=== PATIENT | male | born 1940 | race Caucasian/White ===

== ENCOUNTER 2016-10-11 07:02 | Day surgery (SDC) | payer MEDICARE, BC ==
[~2016-10-11 07:02] MED LIST: Lactated Ringers 1,000 ML IV SCH
[2016-10-11] MEDS ORDERED: Propofol 200 MG/20 ML SDV ONE ×2 (08:05→09:00)
[2016-10-11] MEDS ORDERED: fentaNYL 100 MCG/2 ML SDV ONE (08:06)
[2016-10-11 10:48] VITALS: BP 162/76
--- NOTE | 2016-10-11 14:59 | OR ---
DATE OF SURGERY: 10/11/2016. REFERRING PROVIDER: Karin Carrillo MD. PRE-OPERATIVE DIAGNOSES: History of recurrent colon polyps. Last colonoscopy on 09/08/2015, revealed 11 small polyps. The year prior on 08/20/2014, he also had 11 polyps removed all of which were small. POST-OPERATIVE DIAGNOSES: 1. Seven small polyps were removed. a. A 4 mm polyp at 100 cm was removed with hot snare. There was also a 3 mm at 100 cm, removed with cold forceps. b. A 3 mm polyp at 90 cm, removed with cold forceps. c. 2 mm x2 as well as 4 mm at 80 cm were removed with cold forceps. d. A 3 mm polyp at 60 cm, removed with cold forceps. 2. 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 PROCEDURE: Colonoscopy with polypectomy x7 (1 using hot snare and 6 using cold forceps). SURGEON: Sotero Salinas M.D. ANESTHESIA: Monitored anesthesia care. BOWEL PREP: Good. DESCRIPTION OF OPERATION: Sergio is a 76-year-old male. The patient was brought to the endoscopy suite after discussing risks and benefits of the procedure. Informed consent was obtained for conscious sedation and colonoscopy with or without biopsy and/or polypectomy. We also discussed possibility of missed lesions. Pre-procedure exam was unremarkable. IV, oxygen, and monitors were placed. The patient was placed in the left lateral decubitus position. Sedation was administered and a digital rectal exam was performed which was unremarkable. Colonoscope was passed into the rectum and slowly advanced all the way to the cecum. Cecum was viewed and photographed. The colonoscope was slowly withdrawn and the mucosa was closed observed in a direct circumferential manner. Ascending colon was remarkable for a 4 mm polyp at 100 cm and 3 mm polyp just slightly distal to this. The 4 mm polyp was irritated and bleeding minimally. This was removed with hot snare. The 3 mm polyp was removed with cold forceps. Ascending colon also revealed 3 mm polyp at 90 cm, removed with cold forceps. Transverse colon was remarkable for 2 mm polyp x2 as well as 4 mm polyp near 80 cm; all removed with cold forceps. The descending colon, near splenic flexure revealed 3 mm polyp at 60 cm, removed with cold forceps. The ascending and transverse colons also showed melanosis coli. Descending and sigmoid colon were unremarkable. Retroflexion was performed. Rectal mucosa was unremarkable. Scope was removed. The patient tolerated the procedure well. The patient was monitored until that baseline status. Discharge instructions were reviewed and the patient was discharged in good condition. COMPLICATIONS: None. TOTAL TIME: 26 minutes. ESTIMATED BLOOD LOSS: 1 mL to 2 mL. RECOMMENDATIONS/FOLLOWUP: We will await results of Path report to determine ideal followup interval. I would like to kindly thank Karin Carrillo MD for this referral. DMB: 10/11/2016 09:38:20 MODL: 10/11/2016 11:37:28 /[id number] MTDD
== END 2016-10-11 10:20 | disposition home or self-care (01) ==
LOC: VM.SDS 07:02
PROVIDERS: ATTEND Family Medicine
DX: Z12.11 Encounter for screening for malignant neoplasm of colon (principal); D12.6 Benign neoplasm of colon, unspecified; Z86.010 Personal history of colon polyps; K63.89 Other specified diseases of intestine; I12.9 Hypertensive chronic kidney disease with stage 1 through stage 4 chronic kidney disease, or unspecified chronic kidney disease; N18.3 Chronic kidney disease, stage 3 (moderate); G47.33 Obstructive sleep apnea (adult) (pediatric); E66.01 Morbid (severe) obesity due to excess calories; Z90.49 Acquired absence of other specified parts of digestive tract; Z98.890 Other specified postprocedural states; Z88.8 Allergy status to other drugs, medicaments and biological substances; Z87.891 Personal history of nicotine dependence; Z79.899 Other long term (current) drug therapy; Z68.41 Body mass index [BMI] 40.0-44.9, adult
CPT/HCPCS: 00810; 45380; 45385; J2704; J3010; J7120; 88305

== ENCOUNTER 2017-07-21 15:21 | Emergency (ER) | payer MEDICARE, BC ==
[2017-07-21] MEDS ORDERED: Sodium Chloride 0.9% 1,000 ML IV ONE (15:24)
[2017-07-21] MEDS ORDERED: Sodium Chloride 0.9% 10 ML Syringe FLUSH PRN (15:24)
[2017-07-21] MEDS ORDERED: Meclizine 25 MG Tab PO ONE (16:18)
[2017-07-21] MEDS ORDERED: Ondansetron 4 MG/2 ML SDV IVPUSH ONE (16:18)
[2017-07-21 16:47] LABS: CHLORIDE,CL 110 mmol/L (98-107); SODIUM,NA 142 mmol/L (136-145)
--- NOTE | 2017-07-21 18:08 | EDM.PDOC ---
ED HPI GENERAL MEDICAL PROBLEM - General Chief Complaint: General Stated Complaint: dizziness Time Seen by Provider: 07/21/17 15:23 Source of Information: Reports: Patient History Limitations: Reports: No Limitations - History of Present Illness INITIAL COMMENTS - FREE TEXT/NARRATIVE: Patient reports dizziness today. he has not had this happen in the past. He states he was lying in bed and became dizzy after repositioning. He became increasingly dizzy with getting up. He did not fall or pass out. No LOC, no headache, no vomiting, but he did endorse nausea. He states he has had a problem over the last several months of swelling with fluid. He has been wearing compression stockings on both lower legs. He has umbilical and inguinal hernias, polycystic kidney disease, HTN, BPH. HE denies chest pain, SOB, pain to jaw or arms, no numbness or tingling. Onset: Today, Sudden Duration: Intermittent Severity: Moderate Worsens with: Reports: Movement - Related Data Allergies Allergy/AdvReac Type Severity Reaction Status Date / Time aspirin Allergy Bleeding Verified 07/21/17 15:57 Penicillins Allergy Rash Verified 07/21/17 15:57 sharpie Allergy Nausea Uncoded 07/21/17 15:57 Home Meds: Home Meds Allopurinol [Zyloprim] 100 mg PO DAILY 08/12/14 [History] Ascorbic Acid [Vitamin C] 1,000 mg PO DAILY 08/12/14 [History] Cholecalciferol (Vitamin D3) [Vitamin D3] 2,000 unit PO DAILY 08/12/14 [History] Doxazosin Mesylate [Cardura] 8 mg PO DAILY 08/12/14 [History] Garlic 320 mg PO DAILY 08/12/14 [History] Gluc 2KCl/Chondr/Jenn Hy/Hy Ac [Glucosamine & Chondroitin Cap] 1 each PO DAILY 08/12/14 [History] Multivitamin [Daily Vitamin] 1 each PO DAILY 08/12/14 [History] Ubidecarenone [Co Q-10] 100 mg PO DAILY 08/12/14 [History] amLODIPine/Benazepril [Lotrel 10-20 MG] 1 cap PO DAILY 08/12/14 [History] Ciprofloxacin [IMW: Ciprofloxacin HCl] 500 mg PO BID 07/21/17 [History] Finasteride 5 mg PO DAILY 07/21/17 [History] Furosemide 20 mg PO DAILY 07/21/17 [History] Zinc 50 mg PO DAILY 07/21/17 [History] hydrALAZINE [Apresoline] 25 mg PO Q8H 07/21/17 [History] Past Medical History HEENT History: Reports: Allergic Rhinitis Other HEENT History: Easy bleeding with aspirin Cardiovascular History: Reports: Hypertension Respiratory History: Reports: Sleep Apnea Gastrointestinal History: Reports: Colon Polyp Other Gastrointestinal History: benign neoplasm of colon Genitourinary History: Reports: Acute Renal Failure, Chronic Renal Insuffiency Other Genitourinary History: ADPKD--autosomal dominant polycystic kidney disease. 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 Other Hematologic History: Bleed easily Immunologic History: Reports: None Oncologic (Cancer) History: Reports: None Dermatologic History: Reports: Other (See Below) Other Dermatologic History: post neck and back cyst removal - Past Surgical History Head Surgeries/Procedures: Reports: None HEENT Surgical History: Reports: None Cardiovascular Surgical History: Reports: None GI Surgical History: Reports: Appendectomy, Colonoscopy Other Musculoskeletal Surgeries/Procedures:: cyst excision (neck/shoulder) Social & Family History - Tobacco Use Smoking Status *Q: Never Smoker Years of Tobacco use: 20 Used Tobacco, but Quit: Yes Month/Year Tobacco Last Used: 30 years ago Second Hand Smoke Exposure: No - Alcohol Use Days Per Week of Alcohol Use: 0 Number of Drinks Per Day: 0 Total Drinks Per Week: 0 - Recreational Drug Use Recreational Drug Use: No Drug Use in Last 12 Months: No ED ROS GENERAL - Review of Systems Review Of Systems: See Below Constitutional: Reports: No Symptoms HEENT: Reports: No Symptoms Respiratory: Reports: No Symptoms Cardiovascular: Reports: No Symptoms Endocrine: Reports: No Symptoms GI/Abdominal: Reports: No Symptoms : Reports: No Symptoms Musculoskeletal: Reports: No Symptoms Skin: Reports: No Symptoms Neurological: Reports: Dizziness Psychiatric: Reports: No Symptoms Hematologic/Lymphatic: Reports: No Symptoms Immunologic: Reports: No Symptoms ED EXAM, GENERAL - Physical Exam Exam: See Below Exam Limited By: No Limitations General Appearance: Alert, WD/WN, No Apparent Distress Eye Exam: Bilateral Eye: EOMI, Normal Inspection, PERRL Ears: Normal TMs Throat/Mouth: Normal Inspection, Normal Lips, Normal Teeth, Normal Gums, Normal Oropharynx, Normal Voice, No Airway Compromise Head: Atraumatic, Normocephalic Neck: Normal Inspection, Supple, Non-Tender, Full Range of Motion Respiratory/Chest: No Respiratory Distress, Lungs Clear, Normal Breath Sounds, No Accessory Muscle Use, Chest Non-Tender Cardiovascular: Normal Peripheral Pulses, Regular Rate, Rhythm, No Edema, No Gallop, No JVD, No Murmur, No Rub GI/Abdominal: Normal Bowel Sounds, Soft, Non-Tender, No Organomegaly, No Distention, No Abnormal Bruit, No Mass (Male) Exam: Hernia, Scrotal Swelling Back Exam: Normal Inspection, Full Range of Motion, NT Extremities: Non-Tender, Normal Capillary Refill, Pedal Edema Neurological: Alert, Oriented, CN II-XII Intact, Normal Cognition, Normal Gait, Normal Reflexes, No Motor/Sensory Deficits Psychiatric: Normal Affect, Normal Mood Skin Exam: Warm, Dry, Intact, Normal Color, No Rash Lymphatic: No Adenopathy Course - Vital Signs Last Recorded V/S: Last Vital Signs Temp 36.3 C 07/21/17 15:30 Pulse 76 07/21/17 18:00 Resp 16 07/21/17 18:00 BP 155/70 H 07/21/17 18:00 Pulse Ox 98 07/21/17 18:00 - Orders/Labs/Meds Orders: Active Orders 24 hr Category Date Time Status EKG Documentation Completion [RC] ROUTINE Care 07/21/17 15:24 Active Abdomen Pelvis wo Cont [CT] Stat Exams 07/21/17 16:17 Taken Head wo Cont [CT] Stat Exams 07/21/17 16:17 Taken Saline Lock Insert [OM.PC] Routine Oth 07/21/17 15:24 Ordered Labs: Laboratory Tests 07/21/17 07/21/17 07/21/17 Range/Units 16:10 16:10 16:10 WBC 6.2 (4.0-10.0) x10^3/uL RBC 3.49 L (4.5-6.0) x10^6/uL Hgb 10.6 L (14.0-18.0) g/dL Hct 32.8 L (40.0-52.0) % MCV 94.0 H (78.0-93.0) fL MCH 30.4 (26.0-32.0) pg MCHC 32.3 (32.0-36.0) g/dL RDW Coeff of Annemarie 15.5 H (10.0-15.0) % Plt Count 163 (130-400) x10^3/uL Add Manual Diff Yes Neutrophils % (Manual) 72 (50-80) % Band Neutrophils % 2 (0-6) % Lymphocytes % (Manual) 14 L (25-50) % Monocytes % (Manual) 6 (2-11) % Eosinophils % (Manual) 6 H (0-4) % Hypersegmented Neuts Rare H Platelet Estimate Adequate Anisocytosis 1+ slight H Macrocytosis 1+ slight H Tear Drop Cells Rare Ovalocytes 1+ slight H Helmet Cells Rare PT 10.4 (9.8-11.8) SEC INR 1.0 L (2.0-3.5) Sodium 142 (136-145) mmol/L Potassium 4.3 (3.5-5.1) mmol/L Chloride 110 H (98-107) mmol/L Carbon Dioxide 22 (21-32) mmol/L Anion Gap 14.3 BUN 39 H (7-18) mg/dL Creatinine 2.5 H (0.70-1.30) mg/dL Est Cr Clr Drug Dosing 25.53 mL/min Estimated GFR (MDRD) 25 Glucose 111 H (74-106) mg/dL Calcium 8.4 L (8.5-10.1) mg/dL Corrected Calcium 9.28 (8.5-10.1) mg/dL Total Bilirubin 0.5 (0.2-1.0) mg/dL AST 16 (15-37) U/L ALT 19 (16-63) U/L Alkaline Phosphatase 78 (46-116) U/L Troponin I < 0.017 (<=0.056) ng/mL NT-Pro-B Natriuret Pep 181 (<=450) pg/mL Total Protein 6.4 (6.4-8.2) g/dL Albumin 2.9 L (3.4-5.0) g/dL Globulin 3.5 Albumin/Globulin Ratio 0.83 TSH, Ultra Sensitive 1.211 (0.358-3.74) uIU/mL Meds: Medications Discontinued Medications Generic Name Dose Route Start Last Admin Trade Name Freq PRN Reason Stop Dose Admin Sodium Chloride 1,000 mls @ 999 mls/hr 07/21/17 15:24 Normal Saline IV 07/21/17 16:24 ONETIME ONE Meclizine HCl 25 mg 07/21/17 16:18 07/21/17 17:50 Antivert PO 07/21/17 16:19 25 mg ONETIME ONE Administration Ondansetron HCl 4 mg 07/21/17 16:18 07/21/17 18:02 Zofran IVPUSH 07/21/17 16:19 4 mg ONETIME ONE Administration Sodium Chloride 10 ml 07/21/17 15:24 Saline Flush FLUSH ASDIRECTED PRN Keep Vein Open Departure - Departure Time of Disposition: 17:56 Disposition: Home, Self-Care 01 Condition: Fair Clinical Impression: Dizziness - Discharge Information Instructions: Near-Syncope, [id number], Dizziness, [id number] Referrals: Karin Carrillo MD [Primary Care Provider] - Forms: ED Department Discharge Additional Instructions: Follow up with Dr. Carrillo tomorrow Stay hydrated Your labs and CT were negative for acute causes for your dizziness You may need to have a cardiology and neurology appointment Please call with any questions or concerns - Problem List & Annotations (1) Dizziness SNOMED Code(s): 670820160, [id number] Code(s): R42 - DIZZINESS AND GIDDINESS Status: Acute Priority: Medium - Problem List Review Problem List Initiated/Reviewed/Updated: Yes - My Orders Last 24 Hours: My Active Orders 07/21/17 15:24 EKG Documentation Completion [RC] ROUTINE Saline Lock Insert [OM.PC] Routine 07/21/17 16:17 Abdomen Pelvis wo Cont [CT] Stat Head wo Cont [CT] Stat - Assessment/Plan Last 24 Hours: My Active Orders 07/21/17 15:24 EKG Documentation Completion [RC] ROUTINE Saline Lock Insert [OM.PC] Routine 07/21/17 16:17 Abdomen Pelvis wo Cont [CT] Stat Head wo Cont [CT] Stat Assessment:: dizziness Plan: Follow up with Dr. Carrillo tomorrow Stay hydrated Your labs and CT were negative for acute causes for your dizziness You may need to have a cardiology and neurology appointment Please call with any questions or concerns
[2017-07-21 19:41] VITALS: BP 155/70
== END 2017-07-21 18:10 | disposition home or self-care (01) ==
LOC: VM.ED 15:21
DX: R42 Dizziness and giddiness (principal); I12.9 Hypertensive chronic kidney disease with stage 1 through stage 4 chronic kidney disease, or unspecified chronic kidney disease; N18.9 Chronic kidney disease, unspecified; E66.01 Morbid (severe) obesity due to excess calories; Z68.41 Body mass index [BMI] 40.0-44.9, adult; Z87.891 Personal history of nicotine dependence; Z88.6 Allergy status to analgesic agent; Z88.0 Allergy status to penicillin; Z91.09 Other allergy status, other than to drugs and biological substances; Z79.899 Other long term (current) drug therapy
CPT/HCPCS: 36415; 70450; 74176; 80053; 83880; 84443; 84484; 85025; 85610; 93005; 96374; 99283-GF; 99284; A9270-GY; J2405